=== PATIENT | female | born 1950 | race Caucasian/White ===

== ENCOUNTER 2016-12-06 19:16 | Emergency (ER) | payer MEDICARE ==
[~2016-12-06] VITALS: Ht 157.5 cm; Wt 86.4 kg
[2016-12-06] MEDS ORDERED: HYDR4TAB4 PO (19:28)
[2016-12-06] MEDS ORDERED: METO-323 PO (19:28)
[2016-12-06] MEDS ORDERED: CARI350 PO (19:28)
[2016-12-06] MEDS ORDERED: LEVE500T53 PO (19:28)
[2016-12-06] MEDS ORDERED: DIAZ10 PO (19:28)
[2016-12-06] MEDS ORDERED: PHENY100 PO (19:28)
[2016-12-06] MEDS ORDERED: ONDA4 PO (19:28)
[2016-12-06] MEDS ORDERED: PIPERACILLIN SODIUM/TAZOBACTAM 4.5 GM in DEXTROSE 5%-WATER 100 ML IV ONE (20:15)
[2016-12-06 20:53] VITALS: BP 170/90
[2017-02-11] MEDS ORDERED: LEVO500 PO (09:10)
[2017-02-11] MEDS ORDERED: LEVE500T53 PO (09:10)
[2017-02-11] MEDS ORDERED: HYDR-3971 PO (09:10)
[2017-02-11] MEDS ORDERED: OXYC40 PO (09:10)
== END 2016-12-06 20:56 | disposition home or self-care (01) ==
LOC: EMS 19:19
DX: K04.7 Periapical abscess without sinus (principal); I10 Essential (primary) hypertension; Z88.8 Allergy status to other drugs, medicaments and biological substances
CPT/HCPCS: 96365; 99284; J2543; J7060

== ENCOUNTER 2017-01-02 19:05 | Emergency (ER) | payer MEDICARE ==
[~2017-01-02] VITALS: Ht 157.5 cm; Wt 104.5 kg
[~2017-01-02 19:05] MED LIST: CARI350 PO; DIAZ10 PO; HYDR4TAB4 PO; LEVE500T53 PO; METO-323 PO; ONDA4 PO; PHENY100 PO
[2017-01-02 22:19] VITALS: BP 110/65
[2017-02-11] MEDS ORDERED: OXYC40 PO (09:10)
[2017-02-11] MEDS ORDERED: LEVE500T53 PO (09:10)
[2017-02-11] MEDS ORDERED: HYDR-3971 PO (09:10)
[2017-02-11] MEDS ORDERED: LEVO500 PO (09:10)
== END 2017-01-02 22:28 | disposition home or self-care (01) ==
LOC: EMS 19:06
DX: S83.92XA Sprain of unspecified site of left knee, initial encounter (principal); S63.302A Traumatic rupture of unspecified ligament of left wrist, initial encounter; I10 Essential (primary) hypertension; Z88.8 Allergy status to other drugs, medicaments and biological substances; W19.XXXA Unspecified fall, initial encounter; Y93.89 Activity, other specified; Y92.89 Other specified places as the place of occurrence of the external cause; Y99.8 Other external cause status
CPT/HCPCS: 99284

== ENCOUNTER → 2017-02-11 | Outpatient (CLI) | payer MEDICARE ==
[~2017-02-11] VITALS: Ht 157.5 cm; Wt 95.0 kg
[~2017-02-11] MED LIST changes: +CloNIDine HCL 0.1 MG TABLET PO ONE; +HYDR-3971 PO; +LEVO500 PO; +OXYC40 PO
[2017-02-11 14:59] VITALS: BP 169/86
== END | disposition home or self-care (01) ==
LOC: SRCNTR 12:53
PROVIDERS: ATTEND Internal Medicine
DX: I10 Essential (primary) hypertension (principal); R56.9 Unspecified convulsions; F17.210 Nicotine dependence, cigarettes, uncomplicated; R50.9 Fever, unspecified; J32.9 Chronic sinusitis, unspecified; Z87.820 Personal history of traumatic brain injury
CPT/HCPCS: G0463

== ENCOUNTER 2018-05-23 21:46 | Inpatient (IN) | payer MEDICARE ==
[~2018-05-23] VITALS: Ht 165.1 cm; Wt 82.4 kg
[~2018-05-23 21:46] MED LIST changes: -CloNIDine HCL 0.1 MG TABLET PO ONE; -HYDR-3971 PO; +HYDR-4069 PO; -METO-323 PO; +METO25XL PO
[2018-05-23] MEDS ORDERED: SIMV-260 PO (22:11)
[2018-05-23] MEDS ORDERED: METO-558 PO (22:11)
[2018-05-23] MEDS ORDERED: DIAZ10 PO (22:11)
[2018-05-23 23:10] LABS: BASOPHILS % (AUTO) 0.9 % (0.0-2.0); EOSINOPHILS % (AUTO) 1.4 % (1.0-6.0); HEMATOCRIT 45.1 % (36-46); HEMOGLOBIN 15.5 g/dL (12.0-16.0); LYMPHOCYTES # (AUTO) 2.3 K/uL (1.0-4.8); LYMPHOCYTES % (AUTO) 20.3 % (22.0-44.0); MEAN CORPUSCULAR HEMOGLOBIN 32.8 pg (26.0-34.0); MEAN CORPUSCULAR HGB CONC 34.4 G/dL (31.0-37.0); MEAN CORPUSCULAR VOLUME 95 fL (80-100); MONOCYTES # (AUTO) 1.3 K/uL (0.1-1.0); NEUTROPHILS # (AUTO) 7.3 K/uL (1.8-7.7); NEUTROPHILS % (AUTO) 65.4 % (40.0-70.0); PLATELET COUNT (AUTO) 273 K/uL (150-450); RED BLOOD CELL COUNT(AUTO) 4.73 MIL/uL (4.00-5.20)
[2018-05-23 23:23] LABS: ANION GAP 18 mmol/L (8-16); CALCIUM, TOTAL 9.3 mg/dL (8.8-10.5); CARBON DIOXIDE 21 mmol/L (22-29); CHLORIDE 97 mmol/L (98-107); CREATININE 0.78 mg/dL (0.60-1.30); GLOMERULAR FILTR. RATE CALC > 60 mL/min (>60); GLUCOSE,RANDOM 117 mg/dL (70-110); POTASSIUM 3.2 mmol/L (3.5-5.1); SODIUM SERUM 136 mmol/L (136-145); UREA NITROGEN, BLOOD 5 mg/dL (7-18)
[2018-05-23 23:29] LABS: LACTIC ACID 1.3 mmol/L (0.4-2.0)
[2018-05-23 23:36] LABS: ALANINE AMINOTRANSFERASE 56 U/L (12-78); ALBUMIN 3.8 g/dL (3.4-5.0); ALKALINE PHOSPHATASE 187 U/L (46-116); ASPARTATE AMINOTRANSFERASE 46 U/L (15-37); BILIRUBIN,TOTAL 0.5 mg/dL (0.1-1.0); LIPASE 137 U/L (73-393); TOTAL PROTEIN, SERUM 8.1 g/dL (6.4-8.2)
[2018-05-23 23:37] LABS: B-TYPE NATRIURETIC PEPTIDE 14 pg/mL (0-100)
[2018-05-24] MEDS ORDERED: NITROGLYCERIN 0.4 MG SUBLINGUAL TABLET #25 SL ONE (00:30)
[2018-05-24] MEDS ORDERED: ASPIRIN 325 MG TABLET PO ONE (00:30)
[2018-05-24] MEDS ORDERED: LORazepam 2 MG/ML VIAL IVP ONE (00:30)
[2018-05-24] MEDS ORDERED: NITROGLYCERIN 2% (1 GM=INCH) PACKET TP ONE (00:30)
[2018-05-24 00:38] LABS: PHENYTOIN (DILANTIN) 10.9 mcg/mL (10.0-20.0)
[2018-05-24] MEDS ORDERED: 0.9% SODIUM CHLORIDE 10 ML SYRINGE IVP PRN (01:00)
[2018-05-24] MEDS ORDERED: POTASSIUM CHLORIDE 10% 40 MEQ/30 ML LIQUID UDCUP PO ONE (01:00)
[2018-05-24] MEDS ORDERED: ONDANSETRON HCL 4 MG/2 ML VIAL IVP PRN (01:00)
[2018-05-24] MEDS ORDERED: ACETAMINOPHEN 325 MG TABLET PO PRN ×2 (01:00→01:30)
[2018-05-24] MEDS ORDERED: MAGNESIUM SULFATE 2 GM/WATER 50 ML IV PRN (01:30)
[2018-05-24] MEDS ORDERED: ALBUTEROL SULFATE 2.5 MG/0.5 ML NEB SOLUTION NEB PRN (01:30)
[2018-05-24] MEDS ORDERED: ZOLPIDEM TARTRATE 5 MG TABLET PO PRN (01:30)
[2018-05-24] MEDS ORDERED: MAGNESIUM SULFATE 4 GM/WATER 100 ML IV PRN (01:30)
[2018-05-24] MEDS ORDERED: MAGNESIUM HYDROXIDE SUSPENSION 30 ML UDCUP PO PRN (01:30)
[2018-05-24] MEDS ORDERED: MAGNESIUM OXIDE 400 MG TABLET PO PRN (01:30)
[2018-05-24] MEDS ORDERED: BISACODYL 10 MG RECTAL RECTAL SUPPOSITORY PR PRN (01:30)
[2018-05-24] MEDS ORDERED: IPRATROPIUM BROMIDE 0.5 MG/2.5 ML NEB SOLUTION NEB PRN (01:30)
[2018-05-24] MEDS ORDERED: POTASSIUM CHLORIDE 20 MEQ ER TABLET PO PRN (01:30)
[2018-05-24] MEDS ORDERED: POTASSIUM CHL 10 MEQ/WATER 50 ML IV PRN (01:30)
[2018-05-24] MEDS: OxyCODONE HCL/ACETAMINOPHEN 5-325 MG TABLET PO PRN ×4 (03:22→20:06)
[2018-05-24] MEDS: ONDANSETRON HCL 4 MG/2 ML VIAL IVP PRN ×2 (06:24→16:34)
[2018-05-24] MEDS: METOPROLOL SUCCINATE 50 MG ER TABLET PO SCH (09:20)
[2018-05-24] MEDS: SIMVASTATIN 20 MG TABLET PO SCH (09:20)
[2018-05-24] MEDS: LevETIRAcetam 500 MG TABLET PO SCH ×2 (09:21→20:05)
[2018-05-24] MEDS: HEPARIN SODIUM,PORCINE 5,000 UNITS/ML VIAL SQ SCH ×2 (09:23→20:06)
[2018-05-24 16:19] VITALS: BP 142/72
[2018-05-24] MEDS: PHENYTOIN SODIUM 100 MG ER CAPSULE PO SCH (20:05)
[2018-05-24 20:18] VITALS: BP 142/83
[2018-05-25 00:12] VITALS: BP 136/77
[2018-05-25] MEDS: LORazepam 2 MG/ML VIAL IVP PRN ×2 (00:35→22:40)
[2018-05-25 04:20] VITALS: BP 129/71
[2018-05-25] MEDS: OxyCODONE HCL/ACETAMINOPHEN 5-325 MG TABLET PO PRN ×4 (05:11→22:39)
[2018-05-25 07:33] VITALS: BP 130/73
[2018-05-25 07:59] LABS: BASOPHILS % (AUTO) 0.9 % (0.0-2.0); EOSINOPHILS % (AUTO) 1.7 % (1.0-6.0); HEMOGLOBIN 14.7 g/dL (12.0-16.0); LYMPHOCYTES % (AUTO) 27.7 % (22.0-44.0); MEAN CORPUSCULAR HEMOGLOBIN 33.3 pg (26.0-34.0); MEAN CORPUSCULAR VOLUME 95 fL (80-100); MONOCYTES % (AUTO) 13.3 % (2.0-9.0); NEUTROPHILS # (AUTO) 4.2 K/uL (1.8-7.7); NEUTROPHILS % (AUTO) 56.4 % (40.0-70.0); PLATELET COUNT (AUTO) 231 K/uL (150-450); RED BLOOD CELL COUNT(AUTO) 4.41 MIL/uL (4.00-5.20); RED CELL DISTRIBUTION WIDTH 13.1 % (11.5-14.5)
[2018-05-25 08:16] LABS: ALANINE AMINOTRANSFERASE 46 U/L (12-78); ALBUMIN 3.4 g/dL (3.4-5.0); ALKALINE PHOSPHATASE 174 U/L (46-116); ANION GAP 15 mmol/L (8-16); ASPARTATE AMINOTRANSFERASE 40 U/L (15-37); BILIRUBIN,TOTAL 0.4 mg/dL (0.1-1.0); CALCIUM, TOTAL 9.1 mg/dL (8.8-10.5); CARBON DIOXIDE 23 mmol/L (22-29); CHLORIDE 102 mmol/L (98-107); GLOMERULAR FILTR. RATE CALC > 60 mL/min (>60); GLUCOSE,RANDOM 103 mg/dL (70-110); PHOSPHORUS 3.8 mg/dL (2.5-4.9); POTASSIUM 3.9 mmol/L (3.5-5.1); SODIUM SERUM 140 mmol/L (136-145); TOTAL PROTEIN, SERUM 7.1 g/dL (6.4-8.2); UREA NITROGEN, BLOOD 6 mg/dL (7-18)
[2018-05-25] MEDS: LevETIRAcetam 500 MG TABLET PO SCH ×2 (09:21→20:22)
[2018-05-25] MEDS: SIMVASTATIN 20 MG TABLET PO SCH (09:21)
[2018-05-25] MEDS: METOPROLOL SUCCINATE 50 MG ER TABLET PO SCH (09:21)
[2018-05-25] MEDS: HEPARIN SODIUM,PORCINE 5,000 UNITS/ML VIAL SQ SCH ×2 (09:21→20:22)
[2018-05-25 11:11] VITALS: BP 141/70
[2018-05-25] MEDS: ONDANSETRON HCL 4 MG/2 ML VIAL IVP PRN ×3 (11:32→22:45)
[2018-05-25 12:04] LABS: GLUCOMETER DEV NAME(LOC) 5S 1M; GLUCOSE,POINT OF CARE 98 MG/DL (70-110)
[2018-05-25 15:52] VITALS: BP 126/97
[2018-05-25 19:30] VITALS: BP 124/88
[2018-05-25] MEDS: PHENYTOIN SODIUM 100 MG ER CAPSULE PO SCH (20:21)
[2018-05-26 00:09] VITALS: BP 123/73
[2018-05-26 04:22] VITALS: BP 143/85
[2018-05-26] MEDS: OxyCODONE HCL/ACETAMINOPHEN 5-325 MG TABLET PO PRN ×4 (04:23→20:19)
[2018-05-26 07:10] VITALS: BP 141/71
[2018-05-26] MEDS: ONDANSETRON HCL 4 MG/2 ML VIAL IVP PRN (08:58)
[2018-05-26] MEDS: LevETIRAcetam 500 MG TABLET PO SCH ×2 (09:33→20:17)
[2018-05-26] MEDS: METOPROLOL SUCCINATE 50 MG ER TABLET PO SCH (09:34)
[2018-05-26] MEDS: SIMVASTATIN 20 MG TABLET PO SCH (09:34)
[2018-05-26] MEDS: HEPARIN SODIUM,PORCINE 5,000 UNITS/ML VIAL SQ SCH ×2 (09:34→20:19)
[2018-05-26 11:06] VITALS: BP 144/89
[2018-05-26] MEDS: LORazepam 2 MG/ML VIAL IVP PRN ×3 (11:17→21:20)
[2018-05-26 15:01] VITALS: BP 140/78
[2018-05-26 20:06] VITALS: BP 148/74
[2018-05-26] MEDS: PHENYTOIN SODIUM 100 MG ER CAPSULE PO SCH (20:18)
[2018-05-27 00:02] VITALS: BP 143/75
[2018-05-27] MEDS: ONDANSETRON HCL 4 MG/2 ML VIAL IVP PRN (00:45)
[2018-05-27] MEDS: OxyCODONE HCL/ACETAMINOPHEN 5-325 MG TABLET PO PRN ×4 (00:45→14:53)
[2018-05-27] MEDS: LORazepam 2 MG/ML VIAL IVP PRN ×2 (01:49→12:13)
[2018-05-27 04:02] VITALS: BP 141/78
[2018-05-27 07:45] VITALS: BP 137/71
[2018-05-27] MEDS: METOPROLOL SUCCINATE 50 MG ER TABLET PO SCH (08:45)
[2018-05-27] MEDS: HEPARIN SODIUM,PORCINE 5,000 UNITS/ML VIAL SQ SCH (08:45)
[2018-05-27] MEDS: LevETIRAcetam 500 MG TABLET PO SCH (08:45)
[2018-05-27] MEDS: SIMVASTATIN 20 MG TABLET PO SCH (08:45)
[2018-05-27 11:29] VITALS: BP 128/75
[2018-05-27] MEDS ORDERED: PERCT PO (12:46)
[2018-05-27] MEDS ORDERED: LORA1TAB3 PO (12:46)
[2018-05-27 15:03] VITALS: BP 157/78
== END 2018-05-27 16:00 | disposition home or self-care (01) | DRG 313 ==
LOC: EMS 21:46 → 5S 05-24 15:01
PROVIDERS: ADMIT Internal Medicine; ATTEND Internal Medicine
DX: R07.89 Other chest pain (principal); F11.20 Opioid dependence, uncomplicated; J44.9 Chronic obstructive pulmonary disease, unspecified; E87.6 Hypokalemia; G40.909 Epilepsy, unspecified, not intractable, without status epilepticus; G89.4 Chronic pain syndrome; I10 Essential (primary) hypertension; E78.5 Hyperlipidemia, unspecified; E66.9 Obesity, unspecified; M19.90 Unspecified osteoarthritis, unspecified site; Z90.49 Acquired absence of other specified parts of digestive tract; Z79.899 Other long term (current) drug therapy; Z86.73 Personal history of transient ischemic attack (TIA), and cerebral infarction without residual deficits; Z88.8 Allergy status to other drugs, medicaments and biological substances; Z68.30 Body mass index [BMI] 30.0-30.9, adult; Z82.49 Family history of ischemic heart disease and other diseases of the circulatory system
CPT/HCPCS: 83605; 83735; 84100; 93005; 96374; 99285; G0480; J1644; J2060; J2405